=== PATIENT | male | born 1960 | race Hispanic/Latino ===

== ENCOUNTER → 2022-08-09 | Outpatient (CLI) | payer OTHER | END | disposition home or self-care (01) | LOC: SHCH 08:55 | PROVIDERS: ATTEND Internal Medicine Cardiovascular Disease | DX: I34.0 Nonrheumatic mitral (valve) insufficiency (principal); I48.91 Unspecified atrial fibrillation; I11.9 Hypertensive heart disease without heart failure; I25.5 Ischemic cardiomyopathy; Z95.1 Presence of aortocoronary bypass graft; Z95.3 Presence of xenogenic heart valve; Z98.890 Other specified postprocedural states | CPT/HCPCS: 93306 ==